=== PATIENT | female | born 1950 | race Native Hawaiian/Other Pacific Islander ===

== ENCOUNTER 2016-12-31 12:51 | Outpatient (CLI) | payer OTHER | END 2016-12-31 19:12 | disposition home or self-care (01) | LOC: MAMMO 12:51 | DX: Z12.31 Encounter for screening mammogram for malignant neoplasm of breast (principal) ==

== ENCOUNTER 2018-02-13 08:09 | Outpatient (CLI) | payer OTHER | END 2018-02-13 19:46 | LOC: MAMMO 08:09 | DX: Z12.31 Encounter for screening mammogram for malignant neoplasm of breast (principal) ==

== ENCOUNTER 2019-03-19 08:32 | Outpatient (CLI) | payer OTHER | END 2019-03-19 20:14 | disposition home or self-care (01) | LOC: MAMMO 08:32 | DX: Z12.31 Encounter for screening mammogram for malignant neoplasm of breast (principal) ==

== ENCOUNTER 2020-06-22 09:09 | Outpatient (CLI) | payer OTHER | END 2020-06-22 21:47 | disposition home or self-care (01) | LOC: US 09:09 | PROVIDERS: ATTEND Nurse Practitioner Family | DX: R92.2 Inconclusive mammogram (principal) ==

== ENCOUNTER 2021-01-18 10:49 | Outpatient (CLI) | payer OTHER | END 2021-01-18 20:18 | disposition home or self-care (01) | LOC: MAMMO 10:49 | PROVIDERS: ATTEND Nurse Practitioner Family | DX: R92.8 Other abnormal and inconclusive findings on diagnostic imaging of breast (principal) | CPT/HCPCS: G0279 ==

== ENCOUNTER 2021-08-17 08:46 | Outpatient (CLI) | payer OTHER | END 2021-08-17 20:31 | disposition home or self-care (01) | LOC: MAMMO 08:46 | PROVIDERS: ATTEND Nurse Practitioner Family | DX: Z12.31 Encounter for screening mammogram for malignant neoplasm of breast (principal) ==